=== PATIENT | female | born 1960 | race Caucasian/White ===

== ENCOUNTER 2021-04-14 08:01 | Outpatient (CLI) | payer BC | END 2021-04-14 08:02 | disposition home or self-care (01) | LOC: CSHMAMMO 08:01 | PROVIDERS: ATTEND Family Medicine | DX: Z12.31 Encounter for screening mammogram for malignant neoplasm of breast (principal); Z91.89 Other specified personal risk factors, not elsewhere classified | CPT/HCPCS: 77063; 77067 ==

== ENCOUNTER 2022-04-21 07:57 | Outpatient (CLI) | payer BC, OTHER | END 2022-04-21 07:58 | disposition home or self-care (01) | LOC: CSHMAMMO 07:57 | PROVIDERS: ATTEND Family Medicine | DX: Z12.31 Encounter for screening mammogram for malignant neoplasm of breast (principal); N63.20 Unspecified lump in the left breast, unspecified quadrant; Z98.890 Other specified postprocedural states; Z91.89 Other specified personal risk factors, not elsewhere classified | CPT/HCPCS: 77063; 77067 ==

== ENCOUNTER 2022-04-23 08:49 | Outpatient (CLI) | payer BC, OTHER | END 2022-04-23 08:50 | disposition home or self-care (01) | LOC: CSHMAMMO 08:49 | PROVIDERS: ATTEND Family Medicine | DX: N63.20 Unspecified lump in the left breast, unspecified quadrant (principal) | CPT/HCPCS: G0279 ==

== ENCOUNTER 2022-05-06 00:34 | Emergency (ER) | payer BC, OTHER ==
[2022-05-06] MEDS ORDERED: Nitroglycerin 0.4 MG TAB 1 EACH ONE (01:07)
[2022-05-06] MEDS ORDERED: Aspirin Chewable 81 MG TAB ONE (01:07)
[2022-05-06 01:22] LABS: #Eosinphils 0.2 10x3/uL (0.0-0.5); #Monocytes 0.4 10x3/uL (0.0-1.1); #Neutrophils 3.3 10x3/uL (1.5-8.4); %Basophils 0.7 % (0.0-2.0); %Lymphocytes 27.7 % (18.0-47.0); %Monocytes 7.9 % (0.0-10.0); %Neutrophils 60.5 % (40.0-75.0); Hemoglobin 13.8 g/dL (12.0-15.5); Mean Corpuscular HGB CONC 35.8 g/dL (32.0-36.0); Mean Corpuscular Hemoglobin 31.7 pg (27.0-33.0); Mean Corpuscular Volume 88.5 fl (81.6-98.3); Mean Platelet Volume 9.4 fl (7.4-10.4); Platelet Count 211 10x3/uL (150-450); RBC Distribution Width 11.9 % (11.5-14.5); Red Blood Cell (RBC) Count 4.36 10x6/uL (3.90-5.03); White Blood Cell (WBC) Count 5.4 10x3/uL (3.5-10.5)
[2022-05-06 01:38] LABS: ALT (SGPT) 15 U/L (8-55); AST (SGOT) 21 U/L (5-34); Albumin 4.5 g/dL (3.5-5.0); Alkaline Phosphatase 65 U/L (40-110); Anion Gap 14 mmol/L (10-20); BUN (Urea Nitrogen) 15 mg/dL (9.8-20.1); Bilirubin, Total 0.5 mg/dL (0.2-1.2); CK (CPK) 58 U/L (29-168); Calc. Creatinine Clearance 0 mL/min (70-130); Carbon Dioxide 26 mmol/L (22-29); Chloride 105 mmol/L (98-107); Globulin 2.8 g/dL (2.4-3.5); Glucose 110 mg/dL (70-105); Lipase 29 U/L (8-78); Protein, Total 7.3 g/dL (6.0-8.3); Sodium 141 mmol/L (136-145)
[2022-05-06 02:56] LABS: Troponin I Less than 0.010 ng/mL (< 0.028)
== END 2022-05-06 03:14 | disposition home or self-care (01) ==
LOC: CSHERS 00:34
DX: R07.89 Other chest pain (principal); E78.5 Hyperlipidemia, unspecified; Z79.899 Other long term (current) drug therapy
CPT/HCPCS: 36415; 71045; 80053; 82550; 83690; 84484; 85025; 93005

== ENCOUNTER 2023-05-10 14:55 | Outpatient (CLI) | payer BC ==
[2023-05-10] MEDS ORDERED: Iopamidol 300 61% 100 ML VIAL FS ONE (16:54)
== END 2023-05-10 14:56 | disposition home or self-care (01) ==
LOC: CSHCT 14:55
PROVIDERS: ATTEND Family Medicine
DX: M89.319 Hypertrophy of bone, unspecified shoulder (principal)
CPT/HCPCS: 70492; 71270; 82565; Q9967

== ENCOUNTER 2023-05-27 08:57 | Outpatient (CLI) | payer BC | END 2023-05-27 08:58 | disposition home or self-care (01) | LOC: CSHMAMMO 08:57 | PROVIDERS: ATTEND Family Medicine | DX: Z12.31 Encounter for screening mammogram for malignant neoplasm of breast (principal); Z91.89 Other specified personal risk factors, not elsewhere classified; Z98.890 Other specified postprocedural states | CPT/HCPCS: 77063; 77067 ==

== ENCOUNTER 2023-06-24 15:13 | Outpatient (CLI) | payer BC | END 2023-06-24 15:14 | disposition home or self-care (01) | LOC: CSHRAD 15:13 | PROVIDERS: ATTEND Family Medicine | DX: J18.9 Pneumonia, unspecified organism (principal) | CPT/HCPCS: 71046 ==